=== PATIENT | male | born 1930 | race Caucasian/White ===

== ENCOUNTER 2016-11-24 09:19 | Day surgery (SDC) | payer MEDICARE, BC ==
--- NOTE | 2016-11-23 14:58 | HP ---
CC: Dr. Self; Dr. Browning * ADMITTING HISTORY AND PHYSICAL: DATE OF OPERATION: 11/24/2016 ADMITTING DIAGNOSES: 1. Gross hematuria. 2. Clot retention. 3. Probable bladder tumor. PLANNED PROCEDURE: Cystectomy, transurethral resection of bladder tumor, possible left stent insertion. SURGEON: Dr. Browning. HISTORY OF PRESENT ILLNESS: Tj Carlos is an 86-year-old gentleman with a history of prostate enlargement and a history of superficial bladder tumor. He had recently been seen for gross hematuria and clot retention and cystoscopy, which was done after he had a Cifuentes catheter in for a while. The bladder was difficult to visualize. There was a diverticulum in the posterior bladder wall and what I suspect is a large recurrent tumor in the left side of the bladder. He has had a 24 Niuean [address] catheter in place and is now being guarding for transurethral resection of bladder tumor and possible left stent insertion depending on intraoperative findings. PAST MEDICAL HISTORY: As outlined in Dr. Self's consultation note and includes: 1. Asthma. 2. Aortic valve disorder. 3. History of diverticulitis. 4. BPH. 5. Hypertension. 6. History of circumferential bladder cancer. MEDICATIONS ON ADMISSION: 1. Avodart 0.5 mg once a day. 2. Metoprolol 5 mg daily. 3. Torsemide 10 mg daily. 4. Arthrotek 50 mg a day. ALLERGIES AND INTOLERANCES: No known drug allergies. PHYSICAL EXAMINATION GENERAL: Reveals an elderly gentleman. VITAL SIGNS: Blood pressure is 118/76, pulse 69 per minute, oxygen saturation 98% on room air. LUNGS: Clear bilaterally. CARDIOVASCULAR: Regular rate and rhythm. S1 and S2. ABDOMEN: Soft. Cifuentes catheter is in place to any light lewis urine. IMPRESSION: An 86-year-old gentleman with hematuria and recent clot retention with a possible recurrent bladder tumor. PLAN: Planned procedure is a transurethral resection of bladder tumor, possible left stent insertion. [id number]/[facility] #: [id number] MTDD
[~2016-11-24 09:19] MED LIST: Acetaminophen TAB* 325 MG ONE; Acetaminophen TAB* 325 MG PO ONE; Buffered Lidocaine 0.9% SYRIN* 5 ML/SYR SYRINGE INTRADERM ONE; Buffered Lidocaine 0.9% SYRIN* 5 ML/SYR SYRINGE ONE; Dexamethasone IV* 4 MG/ML 1 ML (4 MG) IV SLOW PU ONE; Dexamethasone IV* 4 MG/ML 1 ML (4 MG) ONE; Famotidine IV* 10 MG/ML 2 ML (20 mg) IV ONE; Famotidine IV* 10 MG/ML 2 ML (20 mg) ONE; cefTRIAXone(*) 2 GM ADDV.VIAL IVPB ONE
[2016-11-24] MEDS ORDERED: fentaNYL* 50 MCG/ML 2 ML VIAL (100 MCG VIAL) ONE (10:13)
[2016-11-24] MEDS ORDERED: Midazolam* 1 MG/ML 2 ML VIAL (2 MG) ONE (10:14)
[2016-11-24] MEDS ORDERED: Iohexol 180 (CONTRAST) 10 ML SDV IV ONE (10:43)
[2016-11-24] MEDS ORDERED: Furosemide IV* 10 MG/ML 2 ML VIAL (20 MG) ONE (11:36)
[2016-11-24] MEDS ORDERED: Ondansetron INJ* 2 MG/ML VIAL IV PRN (11:54)
[2016-11-24] MEDS ORDERED: fentaNYL* 50 MCG/ML 2 ML VIAL (100 MCG VIAL) IV PRN (11:54)
[2016-11-24] MEDS ORDERED: oxyCODONE TAB* 5 MG TAB PO PRN (11:54)
[2016-11-24] MEDS ORDERED: HYDROmorphone INJ* 1 MG/ML CARPUJECT SYRINGE IV PRN (11:54)
--- NOTE | 2016-11-24 13:23 | RAD ---
INDICATION: Hematuria, bladder tumor. Cystoscopy, bladder tumor resection, LEFT retrograde pyelogram, LEFT ureteral stent placement. COMPARISON: No relevant prior exams available on the [facility] PACS for comparison. TECHNIQUE: 11 seconds fluoroscopy. FINDINGS: LEFT retrograde pyelogram demonstrates mild calyceal blunting. LEFT ureteral stent placed with decompression of the collecting system. IMPRESSION: Procedural fluoroscopy. CPT II Codes: 6045F
[2016-11-24] MEDS ORDERED: Lidocaine 2% JELLY* 6 ML JELLY TOPICAL ONE (13:37)
[2016-11-24 16:35] VITALS: BP 106/61
--- NOTE | 2016-11-25 10:38 | OP ---
CC: Dr. Ray Self * DATE OF OPERATION: 11/24/16 - [facility] DATE OF : [birth year] SURGEON: Alex Brownign MD. ANESTHESIOLOGIST: Dr. Amanda Berrios. ANESTHESIA: Spinal. PRE-OP DIAGNOSES: 1. Gross hematuria. 2. Bladder tumor. POST-OP DIAGNOSES: 1. Gross hematuria. 2. Bladder tumor. OPERATIVE PROCEDURE: 1. Cystoscopy, transurethral resection and fulguration large bladder tumor ( greater than 6 to 7 cm). 2. Left retrograde and left stent insertion. 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 COMPLICATIONS: None. POSTOPERATIVE CONDITION: Stable. BLOOD LOSS: Less than 50 mL. STENT USED: A 7-Burundian 28 cm silicone stent left ureter. INDICATIONS: Tj Carlos is an 86-year-old gentleman who was recently evaluated for gross hematuria and clot retention. He had undergone insertion of a 24-Burundian Cifuentes catheter in the office after irrigation and is now being brought in for management of the bladder tumor. DESCRIPTION OF PROCEDURE: After induction of spinal anesthesia, the patient was placed in dorsal lithotomy position. Sequential compression devices were in place and functioning. Initial cystoscopy revealed a normal appearing urethra. There was moderate regrowth of prostate tissue. The bladder was examined. When I had evaluated the patient in the office, he had been having gross hematuria, which had limited the evaluation. Now, I could get a good look of the bladder with the patient under anesthesia and found a very large 9 to 10 cm tumor arising from the left lateral wall and covering the entire left side of the bladder and covering the left side of the trigone. Even though the tumor was projecting over the area of the trigone, there was no actual involvement of the left orifice, which I could visualize. The tumor had an appearance of superficial transitional cell carcinoma with multiple large clots embedded within the tumor. Left retrograde pyelogram revealed fullness of the left collecting system. A 7- Burundian 28 cm silicone stent was introduced and positioned under fluoroscopy with good proximal and distal positioning obtained. Next, attention was directed to transurethral resection of the tumor. Because of the massive size of the tumor, I do not think that I would be able to resect it completely in one session without increasing the risk of fluid absorption. So, my plan was to make this the first of a two-stage resection. [employer] biopsies were obtained and sent for histopathology. Next, using the resectoscope about 50 to 60% of the tumor was resected. Hemostasis was secured using the coagulating current. At the end of the procedure, hemostasis appeared satisfactory and there was no evidence of bladder perforation. A 24- Burundian Cifuentes was placed for temporary bladder drainage. My plan is to allow the bladder to rest for the next 3 to 4 weeks and then to bring him back in about a month for a repeat transurethral resection. [id number]/[facility] #: [id number] [facility]
== END 2016-11-24 17:29 | disposition home or self-care (01) ==
LOC: OR 09:19
PROVIDERS: ATTEND Urology
DX: C67.2 Malignant neoplasm of lateral wall of bladder (principal); R31.0 Gross hematuria; N32.3 Diverticulum of bladder; J45.909 Unspecified asthma, uncomplicated; I10 Essential (primary) hypertension; I35.1 Nonrheumatic aortic (valve) insufficiency
CPT/HCPCS: 74420; 88307; A9270-GY; C1876; J0696; J1100; J1580; J1940; J2250; J3010

== ENCOUNTER 2017-04-11 07:41 | Day surgery (SDC) | payer MEDICARE, BC ==
--- NOTE | 2017-03-25 07:41 | HP ---
CC: Dr. Self * ADMITTING HISTORY AND PHYSICAL: DATE OF ADMISSION: 04/11/17 ADMITTING DIAGNOSIS: Very large superficial bladder cancer. PLANNED PROCEDURE: Cystoscopy, transurethral resection of bladder tumor, left retrograde and left ureteral stent change. SURGEON: Alex Browning MD HISTORY OF PRESENT ILLNESS: Tj Carlos is an 86-year-old gentleman who has undergone 2 previous resections for what is a very large, but superficial bladder tumor occupying almost the entire left side of the urinary bladder. He also has undergone left stent insertion in November of 2016 and is now being brought in for repeat transurethral resection of the bladder tumor and left stent change. PAST MEDICAL HISTORY: Significant for: 1. Recurrent superficial bladder cancer. 2. Asthma. 3. Aortic valve disorder. 4. BPH. 5. Hypertension. MEDICATIONS ON ADMISSION: 1. Torsemide 10 mg daily. 2. Metoprolol 5 mg daily. 3. Arthrotek 50 mg daily. 4. Avodart 0.5 mg once a day. ALLERGIES AND INTOLERANCES: No known drug allergies. PHYSICAL EXAMINATION GENERAL: Reveals a pleasant, elderly gentleman. VITAL SIGNS: Blood pressure is 100/60, pulse 64 per minute, temperature 96.4, oxygen saturation 99% on room air. LUNGS: Clear bilaterally. CARDIOVASCULAR EXAM: Regular rate and rhythm. S1, S2. ABDOMEN: Soft with mild left flank tenderness. IMPRESSION: An 86-year-old gentleman with a very large tumor encompassing the left side of the bladder who has undergone 2 previous procedures for resection, but because of the very large size of the tumor, it still has not been completely resected. PLAN: Transurethral resection of bladder tumor and left retrograde and left ureteral stent change. [id number]/[facility] #: [id number] [facility]
[~2017-04-11 07:41] MED LIST changes: -Acetaminophen TAB* 325 MG ONE; -Acetaminophen TAB* 325 MG PO ONE; -Buffered Lidocaine 0.9% SYRIN* 5 ML/SYR SYRINGE ONE; -Dexamethasone IV* 4 MG/ML 1 ML (4 MG) ONE; -Famotidine IV* 10 MG/ML 2 ML (20 mg) ONE; +Gentamicin ADULT (*) 160 MG in NS 0.9% 100 ML* 100 ML IVPB SCH; +Sodium Citrate/Citric Acid* 15 ML UDC PO ONE; -cefTRIAXone(*) 2 GM ADDV.VIAL IVPB ONE
[2017-04-11] MEDS ORDERED: Famotidine IV* 10 MG/ML 2 ML (20 mg) ONE (07:44)
[2017-04-11] MEDS ORDERED: Dexamethasone IV* 4 MG/ML 1 ML (4 MG) ONE (07:44)
[2017-04-11] MEDS ORDERED: Sodium Citrate/Citric Acid* 15 ML UDC ONE (07:45)
[2017-04-11] MEDS ORDERED: Gentamicin ADULT (*) 40 MG/ML VIAL ONE (07:45)
[2017-04-11] MEDS ORDERED: cefTRIAXone(*) 2 GM ADDV.VIAL IVPB ONE (07:45)
[2017-04-11] MEDS ORDERED: Midazolam* 1 MG/ML 2 ML VIAL (2 MG) ONE (08:08)
[2017-04-11] MEDS ORDERED: fentaNYL* 50 MCG/ML 2 ML VIAL (100 MCG VIAL) ONE (08:08)
[2017-04-11] MEDS ORDERED: Metoprolol Tartrate TAB* 25 MG ONE (08:10)
[2017-04-11] MEDS ORDERED: Metoprolol Succinate XL TAB* 25 MG PO STA (08:18)
[2017-04-11] MEDS ORDERED: Furosemide IV* 10 MG/ML 2 ML VIAL (20 MG) ONE ×2 (08:45→14:34)
[2017-04-11] MEDS ORDERED: Propofol* 500 MG/50 ML BTL ONE (08:46)
[2017-04-11] MEDS ORDERED: Lidocaine 2% PF * 5 ML VIAL ONE (08:46)
[2017-04-11] MEDS ORDERED: Iohexol 180 (CONTRAST) 10 ML SDV IV ONE (10:05)
[2017-04-11] MEDS ORDERED: Acetaminophen IV 1GM/100ML * 1,000 MG/100 ML VIAL IVPB ONE (10:46)
[2017-04-11] MEDS ORDERED: HYDROmorphone INJ* 1 MG/ML CARPUJECT SYRINGE IV PRN (10:46)
[2017-04-11] MEDS ORDERED: fentaNYL* 50 MCG/ML 2 ML VIAL (100 MCG VIAL) IV PRN (10:46)
[2017-04-11] MEDS ORDERED: diPHENhydraMINE IV* 50 MG/ML 1 ml VIAL (BENADRYL) IV PRN (10:46)
[2017-04-11] MEDS ORDERED: oxyCODONE TAB* 5 MG TAB PO PRN (10:46)
[2017-04-11] MEDS ORDERED: Ondansetron INJ* 2 MG/ML VIAL IV PRN (10:46)
[2017-04-11] MEDS ORDERED: Naloxone* 0.4 MG/ML 1 ML VIAL IV PRN (10:46)
--- NOTE | 2017-04-11 12:08 | RAD ---
INDICATION: Left retrograde ureteral stent exchange. COMPARISON: Comparison is made with a prior study from November 24, 2016. TECHNIQUE: 6 seconds of intermittent fluoroscopic guidance were provided and 3 spot films of the abdomen were centered on the left side. FINDINGS: There is placement of a double-J stent catheter on the left side which demonstrates normal course. IMPRESSION: INTRAOPERATIVE CONTROL FILMS. CPT II Codes: 6045F
[2017-04-11 14:39] VITALS: BP 115/63
--- NOTE | 2017-04-12 02:22 | OP ---
CC: Dr. Ray Self * DATE OF OPERATION: 04/11/17 - [facility] DATE OF : [birth year] SURGEON: Alex Browning MD ANESTHESIOLOGIST: Amanda Berrios MD ANESTHESIA: Spinal. PRE-OP DIAGNOSES: 1. Gross hematuria. 2. Bladder cancer. POST-OP DIAGNOSES: 1. Gross hematuria. 2. Bladder cancer. OPERATIVE PROCEDURE: 1. Cystoscopy, transurethral resection and fulguration of bladder tumor (6 to 7 cm). 2. Left retrograde and left ureteral stent change. 3. Internal urethrotomy. INDICATIONS: Tj Carlos is an 86-year-old gentleman, who had initially been evaluated and treated for a very large bladder tumor. While the tumor appears superficial, it encompasses almost the entire left lateral bladder wall. He has previously undergone staged transurethral resection and because of the concern for absorption, I am limiting the resection to about an hour or so and he is now being brought in for a repeat staged transurethral resection of the bladder tumor. COMPLICATIONS: None. ESTIMATED BLOOD LOSS: Approximately 100 to 150 cc. STENT USED: 8- Czech stent, left ureter. POSTOPERATIVE CONDITION: Stable. OPERATIVE FINDINGS: 1. Stricture, bulbar urethra. 2. Mild enlargement of the prostate. 3. Very large vascular superficial-appearing tumor encompassing large part of the left lateral wall of bladder. DESCRIPTION OF PROCEDURE: After induction of spinal anesthesia, the patient was placed in dorsal lithotomy position. Sequential compression devices were in place and functioning. Initial cystoscopy revealed a stricture in the mid-to -proximal bulbar urethra, which was incised at the 12 o'clock with the internal urethrotome. The prostate was mildly enlarged. The bladder was examined. The previously placed stent was removed. Next, attention was directed to the transurethral resection of the tumor, while it had been resected on two occasions previously, still there was a fairly large tumor burden noted. Using the resectoscope, I attempted to resect as much of the tumor as I safely could. Once again because of very large size and vascular nature of the tumor, the resection had to be done very gradually and in stages with care being taken for hemostasis as I resected. Probably, the last 80% of tumor was resected with leaving a residual probably 20% to 25% of tumor behind. Once as much of the tumor as could be safely resected at one time had been accomplished, I then elected to go ahead and do the left retrograde pyelogram, which revealed fullness of the left collecting system and a new 8-Czech Pinckard stent was introduced and positioned under fluoroscopy with good proximal and distal positioning obtained. At the end of the procedure , hemostasis appeared satisfactory and there was no evidence of bladder perforation. The resected tissue was removed from the bladder using the [employer] evacuator. A 24-Czech Cifuentes was placed for temporary bladder drainage. The patient tolerated the procedure satisfactorily and was transferred back to the recovery area in stable condition. [id number]/[facility] #: [id number] [facility]
== END 2017-04-11 15:02 | disposition home or self-care (01) ==
LOC: OR 07:41
PROVIDERS: ATTEND Urology
DX: C67.8 Malignant neoplasm of overlapping sites of bladder (principal); R31.0 Gross hematuria; N35.9 Urethral stricture, unspecified; J45.909 Unspecified asthma, uncomplicated; I10 Essential (primary) hypertension; I35.8 Other nonrheumatic aortic valve disorders
CPT/HCPCS: 74420; 88307; A9270-GY; C2625; J0696; J1100; J1580; J1940; J2250; J2704; J3010

== ENCOUNTER → 2017-09-12 09:24 | Day surgery (SDC) | payer MEDICARE, BC ==
--- NOTE | 2017-09-06 18:57 | HP ---
CC: Clair; Dr. Adame; Dr. Browning* ADMITTING HISTORY AND PHYSICAL: DATE OF ADMISSION: 09/12/17. ADMITTING DIAGNOSES: 1. Bladder tumor. 2. Prostate enlargement. 3. Recurrent urinary tract infections. PLANNED PROCEDURE: Transurethral resection of bladder tumor, possible left stent insertion. SURGEON: Dr. Browning. HISTORY OF PRESENT ILLNESS: Tj Carlos is a 87-year-old gentleman, who had originally been evaluated for a extremely large superficial bladder cancer. He has undergone several previous resections with significant debulking of the tumor and is now being brought in for another attempt to try to completely resect this very large, but superficial bladder tumor. In addition, he has a long-standing history of prostate enlargement and of recurrent urinary tract infections and in fact was recently treated with antibiotics in the form of Levaquin and doxycycline for urinary tract infections. PAST MEDICAL HISTORY: Significant for: 1. Large superficial bladder tumor (most recent pathology revealed high-grade, but non-invasive bladder cancer). 2. Aortic valve disorder. 3. BPH. 4. Asthma. 5. Essential hypertension. MEDICATIONS: On admission: 1. Recently concluded course of Levaquin and doxycycline. 2. Arthrotec 50 mg daily. 3. Metoprolol 5 mg daily. 4. Torsemide 10 mg daily. 5. Avodart 0.5 mg daily. ALLERGIES: No known drug allergies. PHYSICAL EXAMINATION GENERAL: Reveals a pleasant, elderly gentleman, who is still fairly alert and aware of everything around him. VITAL SIGNS: Blood pressure is 126/80, pulse 71 per minute and regular, oxygen saturation is 99% on room air, temperature 97.3. LUNGS: Clear bilaterally. CARDIOVASCULAR EXAM: S1, S2, regular. ABDOMEN: Soft without masses, 2+ pedal edema is noted. IMPRESSION: An 87-year-old gentleman with a very large superficial bladder tumor, which has been resected on several previous occasions, and is now being brought in for another attempt to try to completely resect this superficial tumor. PLAN: Plan is transurethral resection of bladder tumor, possible left stent insertion. [id number]/[facility] #: [id number] MTDD
[~2017-09-12 09:24] MED LIST changes: +Bupivacaine-MPF SPINAL* 7.5 MG/ML - 2ML AMP ONE; -Dexamethasone IV* 4 MG/ML 1 ML (4 MG) IV SLOW PU ONE; +Dexamethasone IV* 4 MG/ML 1 ML (4 MG) ONE; +EPHEDrine (Pressors)* 50 MG/ML VIAL ONE; +Famotidine IV* 10 MG/ML 2 ML (20 mg) ONE; +Furosemide IV* 10 MG/ML 2 ML VIAL (20 MG) ONE; -Gentamicin ADULT (*) 160 MG in NS 0.9% 100 ML* 100 ML IVPB SCH; +Gentamicin ADULT (*) 180 MG in NS 0.9% 100 ML* 100 ML IVPB ONE; +Iohexol 180 (CONTRAST) 10 ML SDV IV ONE; +Levofloxacin 500 MG IVPREMIX(* 500 MG/100 ML BAG IVPB ONE; +Lidocaine 2% PF * 5 ML VIAL ONE; +Midazolam* 1 MG/ML 5 ML VIAL (5 MG) ONE; +Naloxone* 0.4 MG/ML 1 ML VIAL IV PRN; +Ondansetron INJ* 2 MG/ML VIAL IV PRN; +Ondansetron INJ* 2 MG/ML VIAL ONE; +Propofol* 10 MG/ML 20 ML BTL IV PUSH ONE; -Sodium Citrate/Citric Acid* 15 ML UDC PO ONE; +fentaNYL* 50 MCG/ML 2 ML VIAL (100 MCG VIAL) IV PRN; +fentaNYL* 50 MCG/ML 2 ML VIAL (100 MCG VIAL) ONE
[2017-09-12 17:01] VITALS: BP 117/70
--- NOTE | 2017-09-13 04:41 | OP ---
CC: Dr. Self * DATE OF OPERATION: 09/12/17 - [facility] DATE OF : [birth year]. SURGEON: Alex Browning MD. ANESTHESIOLOGIST: Dr. Roman. ANESTHESIA: Spinal. PRE-OP DIAGNOSIS: Bladder cancer. POST-OP DIAGNOSES: 1. Bladder cancer. 2. Urethral stricture. SURGICAL PROCEDURES: 1. Internal urethrotomy. 2. Transurethral resection and fulguration of bladder tumor (7 to 8 cm). COMPLICATIONS: None. ESTIMATED BLOOD LOSS: Approximately 100 cc. CATHETER: 26-Pakistani Cifuentes. OPERATIVE FINDINGS: 1. Strictures, bulbar urethra. 2. Large papillary superficial-appearing tumor, left lateral wall of bladder. INDICATIONS: Tj Carlos is an 87-year-old gentleman with a history of a very large superficial bladder tumor, which has been resected in stages due to the extremely large bulk of the tumor. Since this is a superficial tumor and given his age, he is not a candidate for a cystectomy. DESCRIPTION OF PROCEDURE: After induction of spinal anesthesia, the patient was placed in dorsal lithotomy position, sequential compression devices were in place and functioning. Initial cystoscopy reveals strictures in the mid to proximal bulbar urethra. Using an internal urethrotome, these were incised at the 12 o'clock position. There was [id number] regrowth of prostate tissue and the bladder was examined. A large diverticulum was noted in the posterior bladder wall. Again noted was the presence of a very large superficial-appearing tumor arising from the left lateral wall with some areas of clots adherent to the tumor. The resectoscope was then introduced and transurethral resection and fulguration of the bladder tumor was carried out. Once again, due to the very large size of the tumor, I do not attempt to completely resect the tumor, but made significant progress in debulking the tumor and at the end of the procedure there was a much smaller tumor burden and hemostasis appeared satisfactory. There was no evidence of bladder perforation. A 26-Pakistani Cifuentes was introduced without difficulty and connected to the drainage bag. The patient tolerated the procedure satisfactorily and was transferred back to the recovery area in stable condition. [id number]/[facility] #: [id number] [facility]
== END | disposition home or self-care (01) ==
LOC: OR 09:24
PROVIDERS: ATTEND Urology
DX: C67.2 Malignant neoplasm of lateral wall of bladder (principal); N32.3 Diverticulum of bladder; N35.9 Urethral stricture, unspecified; N40.0 Benign prostatic hyperplasia without lower urinary tract symptoms; J45.909 Unspecified asthma, uncomplicated; I10 Essential (primary) hypertension; I35.8 Other nonrheumatic aortic valve disorders; D64.9 Anemia, unspecified; I27.20 Pulmonary hypertension, unspecified
CPT/HCPCS: 36415; 84132; 88307; J1100; J1580; J1940; J1956; J2250; J2405; J2704; J3010

== ENCOUNTER → 2018-03-15 07:36 | Day surgery (SDC) | payer MEDICARE, BC ==
--- NOTE | 2018-01-05 23:38 | HP ---
CC: Dr. Ray Self; Dr. Albin Adame * ADMITTING HISTORY AND PHYSICAL: DATE OF ADMISSION: 01/11/18 ADMITTING DIAGNOSES: 1. Hematuria. 2. Very large superficial bladder tumor. 3. Urethral strictures. PLANNED PROCEDURE: Internal urethrotomy, transurethral resection of bladder tumor, and left stent insertion. SURGEON: Dr. Browning. HISTORY OF PRESENT ILLNESS: Tj Carlos is an 87-year-old gentleman, who has been previously evaluated and treated for an extremely large but superficial bladder tumor. 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 He has undergone several previous resections and still has some residual tumor in the left lateral wall of the bladder. PAST MEDICAL HISTORY: Significant for: 1. Aortic valve disorder. 2. Hypertension. 3. Asthma. 4. Superficial bladder cancer. MEDICATIONS ON ADMISSION: 1. Avodart 0.5 mg daily. 2. Metoprolol 25 mg daily. 3. Torsemide 10 mg daily. 4. Arthrotec 50 mg daily. ALLERGIES: No known drug allergies. PHYSICAL EXAMINATION GENERAL: Reveals an elderly gentleman. VITAL SIGNS: Blood pressure is 126/70, pulse 73 per minute and regular, oxygen saturation 96% on room air. LUNGS: Clear bilaterally. CARDIOVASCULAR: Regular rate and rhythm. S1, S2. ABDOMEN: Soft without masses. EXTREMITIES: He has bilateral lower extremity edema, 1 to 2+. IMPRESSION AND PLAN: An 87-year-old gentleman, who initially had presented with extremely large superficial bladder tumor, who has had prior resections and is now being brought in for internal urethrotomy, further resection of bladder tumor, and left stent insertion. [id number]/[facility] #: [id number] [facility]
--- NOTE | 2018-02-08 07:47 | HP ---
ADMITTING HISTORY AND PHYSICAL: DATE OF ADMISSION: 02/22/18. ADMITTING DIAGNOSES: 1. Large superficial bladder tumor. 2. Urethral stricture. PLANNED PROCEDURE: 1. Internal urethrotomy. 2. Transurethral resection of bladder tumor. 3. Possible left stent insertion. HISTORY OF PRESENT ILLNESS: Tj Carlos is an 87-year-old gentleman with a longstanding history of a very large superficial bladder tumor, which had required multiple prior resections. He is now being brought in for another followup transurethral resection of the residual tumor. In addition, he has a history of recurrent urethral stricture. PAST MEDICAL HISTORY: Significant for: 1. Superficial bladder cancer. 2. Aortic valve disorder. 3. Asthma. 4. Hypertension. MEDICATIONS: 1. Metoprolol 25 mg a day. 2. Avodart 0.5 mg a day. 3. Arthrotec 50 mg daily. 4. Torsemide 10 mg daily. ALLERGIES: No known drug allergies. PHYSICAL EXAMINATION GENERAL: Reveals a pleasant elderly gentleman. VITAL SIGNS: Blood pressure is 126/70, pulse 74 per minute regular, oxygen saturation 96% on room air. LUNGS: Clear bilaterally. CARDIOVASCULAR: Regular rate and rhythm. S1, S2. ABDOMEN: Soft without masses. He does have moderate bilateral lower extremity edema. IMPRESSION: An 87-year-old gentleman with a very large superficial bladder tumor, whose prior scheduled surgery had to be rescheduled because of logistics and he is now being brought in for internal urethrotomy and transurethral resection of bladder tumor and possible left stent insertion. [id number]/[facility] #: [id number] MTDD
[~2018-03-15 07:36] MED LIST changes: -Bupivacaine-MPF SPINAL* 7.5 MG/ML - 2ML AMP ONE; -Dexamethasone IV* 4 MG/ML 1 ML (4 MG) ONE; -EPHEDrine (Pressors)* 50 MG/ML VIAL ONE; -Famotidine IV* 10 MG/ML 2 ML (20 mg) IV ONE; -Famotidine IV* 10 MG/ML 2 ML (20 mg) ONE; +Gentamicin ADULT (*) 160 MG in NS 0.9% 100 ML* 100 ML IVPB ONE; -Gentamicin ADULT (*) 180 MG in NS 0.9% 100 ML* 100 ML IVPB ONE; +Lactated Ringers 1000 ML Bag* 1,000 ML IV SCH; -Levofloxacin 500 MG IVPREMIX(* 500 MG/100 ML BAG IVPB ONE; +Lidocaine 1% INJ* 10 MG/ML 30 ML SDV ONE; +Lidocaine 1%* 5 ML VIAL ONE; -Lidocaine 2% PF * 5 ML VIAL ONE; +Midazolam* 1 MG/ML 2 ML VIAL (2 MG) ONE; -Midazolam* 1 MG/ML 5 ML VIAL (5 MG) ONE; -Propofol* 10 MG/ML 20 ML BTL IV PUSH ONE; +Sodium Citrate/Citric Acid* 15 ML UDC PO ONE; +cefTRIAXone(*) 2 GM ADDV.VIAL IVPB ONE; -fentaNYL* 50 MCG/ML 2 ML VIAL (100 MCG VIAL) ONE; +oxyCODONE TAB* 5 MG TAB PO PRN
[2018-03-15 13:33] VITALS: BP 120/80
--- NOTE | 2018-03-15 20:10 | OP ---
CC: Dr. Albin Adame; Dr. Ray Self * DATE OF OPERATION: 03/15/18 - [facility] DATE OF : [birth year] SURGEON: Dr. Browning. ANESTHESIOLOGIST: Dr. Pinon. ANESTHESIA: Spinal. PRE-OP DIAGNOSES: 1. Hematuria. 2. Urethral stricture. 3. Superficial bladder cancer. POST-OP DIAGNOSES: 1. Hematuria. 2. Urethral stricture. 3. Superficial bladder cancer. OPERATIVE PROCEDURE: 1. Internal urethrotomy, transurethral resection and fulguration of bladder tumor (greater than 6 to 7 cm). 2. Left retrograde and left stent insertion. INDICATIONS: Tj Carlos is an 87-year-old gentleman who had been previously evaluated and treated for very large multiple left lateral wall superficial bladder tumor. OPERATIVE FINDINGS: 1. Urethral strictures. 2. Superficial bulky papillary tumor, left lateral wall of bladder. 3. Fullness of the left collecting system with no filling defects noted. COMPLICATIONS: None. ESTIMATED BLOOD LOSS: Approximately 100 to 150 cc. STENT USED: 7-Lebanese 26 cm silicone stent, left ureter. POSTOPERATIVE CONDITION: Stable. DESCRIPTION OF PROCEDURE: After induction of spinal anesthesia, the patient was placed in dorsal lithotomy position. Sequential compression devices were in place and functioning. Initial evaluation revealed recurrent strictures in the penile and bulbar urethra. The strictures in the penile urethra were dilated, and using the internal urethrotome, the strictures in the bulbar urethra were incised at the 12 o'clock position. The prostate was moderately enlarged. The bladder was entered and examined. The right and left ureteral orifices were identified. A guidewire was introduced into the left orifice. Retrograde pyelogram revealed mild fullness of the left collecting system with no filling defects noted. A guidewire was left in place in the left collecting system and the resectoscope was then introduced. The tumor was resected carefully and the resected tissue was removed from the bladder using the [employer] evacuator. Parts of the tumor were quite vascular requiring management with coagulating current, which was successfully done. The vast majority of the tumor was resected and/ or fulgurated; and, at the end of the procedure, hemostasis appeared satisfactory. A 7-Lebanese 26 cm silicone stent was introduced and positioned under fluoroscopy with good proximal and distal positioning obtained. My plan is to leave the stent in for the next couple of months and possibly bring him back in 2 to 3 months for one final look to remove any remaining tumor and also for stent removal at that time. The patient tolerated the procedure satisfactorily and was transferred back to the recovery area in stable condition. [id number]/[facility] #: [id number] MTDKathrin
== END | disposition home or self-care (01) ==
LOC: OR 07:36
PROVIDERS: ATTEND Urology
DX: C67.8 Malignant neoplasm of overlapping sites of bladder (principal); N35.912 Unspecified bulbous urethral stricture, male; R31.9 Hematuria, unspecified; I35.8 Other nonrheumatic aortic valve disorders; J45.909 Unspecified asthma, uncomplicated; K21.9 Gastro-esophageal reflux disease without esophagitis; I27.20 Pulmonary hypertension, unspecified
CPT/HCPCS: 74420; 88307; C1876; J0696; J1580; J1940; J2250; J2405